=== PATIENT | male | born 1945 | race Caucasian/White ===

== ENCOUNTER 2024-02-21 10:03 | Inpatient (IN) | payer MEDICARE, BC ==
[~2024-02-21] VITALS: Ht 175.3 cm; Wt 79.8 kg
[~2024-02-21 10:03] MED LIST: ALPR0.5T8 PO; IPRA4AER IH; MENT113O TP
[2024-02-21 10:28] LABS: BASOPHILS % (AUTO) 0.5 % (0.0-2.0); EOSINOPHILS # (AUTO) 0.1 K/uL (0.0-0.7); EOSINOPHILS % (AUTO) 1.4 % (0.0-6.0); HEMATOCRIT 26 % (39-51); HEMOGLOBIN 8.5 g/dL (13.5-17.5); LYMPHOCYTES # (AUTO) 0.7 K/uL (0.8-4.8); LYMPHOCYTES % (AUTO) 11.5 % (20.0-44.0); MEAN CORPUSCULAR HEMOGLOBIN 31 PG (26.0-33.0); MEAN CORPUSCULAR HGB CONC 33 g/dl (31.0-36.0); MEAN CORPUSCULAR VOLUME 95 fL (80-96); MONOCYTES # (AUTO) 0.9 K/uL (0.1-1.30); MONOCYTES % (AUTO) 14.3 % (2.0-12.0); NEUTROPHILS # (AUTO) 4.5 K/uL (1.8-8.9); NEUTROPHILS % (AUTO) 72.3 % (43.0-81.0); PLATELET COUNT (AUTO) 144 K/uL (150-450); RED BLOOD CELL COUNT(AUTO) 2.73 MIL/uL (4.5-6.0); RED CELL DISTRIBUTION WIDTH 16.3 % (11.5-15.0); WHITE BLOOD COUNT (AUTO) 6.2 K/uL (4.3-11.0)
[2024-02-21] MEDS: IV NS 0.9% 500 ML BAG IV ONE (10:30)
[2024-02-21 10:37] LABS: INR 1.05 (0.91-1.10); PARTIAL THROMBOPLASTIN TIME 34.4 SEC (24.3-34.3); PROTHROMBIN TIME 11.1 SECS (9.2-11.1)
[2024-02-21 10:45] LABS: CALCIUM, SERUM 8.5 mg/dL (8.5-10.1); CARBON DIOXIDE 25 mmol/L (21-32); CHLORIDE 97 mmol/L (98-107); CREATININE 5.9 mg/dL (0.6-1.3); GLUCOSE 158 mg/dL (74-106); POTASSIUM 3.8 mmol/L (3.5-5.1); SODIUM SERUM 133 mmol/L (136-145); UREA NITROGEN, BLOOD 70 mg/dL (7-18)
[2024-02-21] MEDS ORDERED: DULO30CA52 PO (12:17)
[2024-02-21] MEDS ORDERED: ASCO500T21 PO (12:17)
[2024-02-21] MEDS ORDERED: OXYC1TAB8 PO (12:17)
[2024-02-21] MEDS ORDERED: NIFE-35 PO (12:17)
[2024-02-21] MEDS ORDERED: MAGN400O6 PO (12:17)
[2024-02-21] MEDS ORDERED: LIDO700A30 TP (12:17)
[2024-02-21] MEDS ORDERED: BISA10SU11 RC (12:17)
[2024-02-21] MEDS ORDERED: NUTR1PAC14 PO (12:17)
[2024-02-21] MEDS ORDERED: CYCL5TAB PO (12:17)
[2024-02-21] MEDS ORDERED: CALC667C6 PO (12:17)
[2024-02-21] MEDS ORDERED: ZINC50TA69 PO (12:17)
[2024-02-21] MEDS ORDERED: HYDR-4076 PO (12:17)
[2024-02-21] MEDS ORDERED: TAMS-12 PO (12:17)
[2024-02-21] MEDS ORDERED: VIT1TABL46 PO (12:17)
[2024-02-21] MEDS ORDERED: NA P133E RC (12:17)
[2024-02-21] MEDS ORDERED: METO50TA16 PO (12:17)
[2024-02-21] MEDS ORDERED: PANT40TA49 PO (12:17)
[2024-02-21] MEDS ORDERED: CHOL500062 PO (12:17)
[2024-02-21] MEDS ORDERED: HEPA50008 SQ (12:17)
[2024-02-21] MEDS ORDERED: MAGN400T52 PO (12:17)
[2024-02-21] MEDS ORDERED: DOCU100C36 PO (12:17)
[2024-02-21] MEDS ORDERED: Z GUARD REMEDY 4 OZ OINT TP PRN (12:30)
[2024-02-21] MEDS ORDERED: ONDANSETRON HCL/PF 4 MG/2 ML VIAL IVP PRN (12:30)
[2024-02-21] MEDS ORDERED: hydrALAZINE HCL 25 MG TABLET PO PRN (14:00)
[2024-02-21] MEDS ORDERED: ALPRAZOLAM 0.5 MG TABLET PO PRN (14:00)
[2024-02-21] MEDS ORDERED: CYCLOBENZAPRINE 10 MG TABLET PO PRN (14:00)
[2024-02-21 16:00] VITALS: BP 97/63; TEMP 97.9; O2SAT 96
[2024-02-21] MEDS: METOPROLOL TARTRATE 50 MG TABLET PO SCH (16:56)
[2024-02-21] MEDS: CALCIUM ACETATE 667 MG CAP/TAB PO SCH (18:09)
[2024-02-21 20:00] VITALS: BP 95/56; TEMP 98.5; O2SAT 96
[2024-02-21] MEDS: TAMSULOSIN 0.4 MG CAP.SR.24H PO SCH (21:50)
[2024-02-21] MEDS: NIFEdipine XL (30MG) 30 MG TAB PO SCH (21:52)
[2024-02-21] MEDS: HEPARIN SODIUM, PORCINE 5000 UNITS/1 ML VIAL SQ SCH (21:54)
[2024-02-22] VITALS: BP 118/62; TEMP 98.1; O2SAT 96
[2024-02-22 04:00] VITALS: BP 117/64; TEMP 98.5; O2SAT 94
[2024-02-22 06:47] LABS: BASOPHILS % (AUTO) 0.1 % (0.0-2.0); HEMATOCRIT 25 % (39-51); HEMOGLOBIN 8.5 g/dL (13.5-17.5); LYMPHOCYTES # (AUTO) 0.3 K/uL (0.8-4.8); LYMPHOCYTES % (AUTO) 3.1 % (20.0-44.0); MEAN CORPUSCULAR HEMOGLOBIN 32 PG (26.0-33.0); MEAN CORPUSCULAR HGB CONC 34 g/dl (31.0-36.0); MEAN CORPUSCULAR VOLUME 94 fL (80-96); MONOCYTES # (AUTO) 0.8 K/uL (0.1-1.30); NEUTROPHILS # (AUTO) 8.9 K/uL (1.8-8.9); NEUTROPHILS % (AUTO) 88.8 % (43.0-81.0); PLATELET COUNT (AUTO) 145 K/uL (150-450); RED BLOOD CELL COUNT(AUTO) 2.69 MIL/uL (4.5-6.0)
[2024-02-22 07:15] LABS: CHOLESTEROL 118 mg/dL (<200); HDL CHOLESTEROL 30 mg/dL (40-60); LDL 71 mg/dL (0-99); TRIGLYCERIDES 45 mg/dL (30-150)
[2024-02-22 07:22] LABS: CALCIUM, SERUM 7.9 mg/dL (8.5-10.1); CARBON DIOXIDE 23 mmol/L (21-32); CHLORIDE 99 mmol/L (98-107); GLUCOSE 98 mg/dL (74-106); PHOSPHORUS 4.2 mg/dL (2.5-4.9); POTASSIUM 4.2 mmol/L (3.5-5.1); SODIUM SERUM 138 mmol/L (136-145); UREA NITROGEN, BLOOD 78 mg/dL (7-18)
[2024-02-22] MEDS: PANTOPRAZOLE 40 MG TABLET.DR PO SCH ×2 (07:30→07:56)
[2024-02-22 08:00] VITALS: BP 114/63; TEMP 99.5; O2SAT 92
[2024-02-22] MEDS: DULOXETINE HCL 30 MG CAPSULE.DR PO SCH (08:07)
[2024-02-22] MEDS: LIDOCAINE 5% (PATCH) 1 EA PATCH TP SCH (08:09)
[2024-02-22 12:00] VITALS: BP 102/60; TEMP 98.6; O2SAT 94
[2024-02-22 16:00] VITALS: BP 123/79; TEMP 98.1; O2SAT 94
[2024-02-22] MEDS: BISACODYL SUPP (10 MG) 10 MG/SUPP.RECT SUPP.RECT RC ONE (18:32)
[2024-02-22] MEDS: ACETAMINOPHEN 325 MG TABLET PO PRN (18:44)
[2024-02-22 20:00] VITALS: BP 103/65; TEMP 97.5; O2SAT 95
[2024-02-22] MEDS: SENNOSIDES 8.6 MG TABLET PO SCH (21:52)
[2024-02-22] MEDS: oxyCODONE/APAP (5/325 MG) 1 UDTAB TABLET PO PRN (23:41)
[2024-02-23] VITALS: BP 101/58; TEMP 97.5; O2SAT 95
[2024-02-23] MEDS: NA PHOS,M-B/NA PHOS,DI-BA 1 EA ENEMA RC PRN (00:23)
[2024-02-23 04:00] VITALS: BP 92/63; TEMP 97.6; O2SAT 95
[2024-02-23 08:00] VITALS: BP 113/56; TEMP 98.2; O2SAT 95
[2024-02-23] MEDS: DOCUSATE SODIUM 100 MG CAPSULE PO SCH (08:19)
[2024-02-23 08:30] LABS: BASOPHILS % (AUTO) 0.1 % (0.0-2.0); EOSINOPHILS % (AUTO) 0.2 % (0.0-6.0); HEMATOCRIT 28 % (39-51); HEMOGLOBIN 9.1 g/dL (13.5-17.5); LYMPHOCYTES # (AUTO) 0.5 K/uL (0.8-4.8); LYMPHOCYTES % (AUTO) 3.3 % (20.0-44.0); MEAN CORPUSCULAR HEMOGLOBIN 31 PG (26.0-33.0); MEAN CORPUSCULAR HGB CONC 32 g/dl (31.0-36.0); MEAN CORPUSCULAR VOLUME 96 fL (80-96); MONOCYTES # (AUTO) 0.9 K/uL (0.1-1.30); MONOCYTES % (AUTO) 6.4 % (2.0-12.0); NEUTROPHILS # (AUTO) 12.2 K/uL (1.8-8.9); PLATELET COUNT (AUTO) 145 K/uL (150-450); RED BLOOD CELL COUNT(AUTO) 2.95 MIL/uL (4.5-6.0); RED CELL DISTRIBUTION WIDTH 16.1 % (11.5-15.0); RETICULOCYTE COUNT 0.9 % (0.6-2.5); WHITE BLOOD COUNT (AUTO) 13.6 K/uL (4.3-11.0)
[2024-02-23] MEDS ORDERED: NEPRO VAN 237 ML CAN PO PRN (08:30)
[2024-02-23 08:35] LABS: IRON, SERUM 13 ug/dl (50-175); TOTAL IRON BINDING CAPACITY 112 ug/dl (250-450)
[2024-02-23 08:55] LABS: ALANINE AMINOTRANSFERASE 9 U/L (12-78); ALBUMIN 1.9 g/dL (3.4-5.0); ALKALINE PHOSPHATASE 89 U/L (46-116); ASPARTATE AMINOTRANSFERASE 10 U/L (15-37); BILIRUBIN,TOTAL 0.6 mg/dL (0.2-1.0); CALCIUM, SERUM 8.3 mg/dL (8.5-10.1); CARBON DIOXIDE 27 mmol/L (21-32); CHLORIDE 99 mmol/L (98-107); CREATININE 4.6 mg/dL (0.6-1.3); GLUCOSE 114 mg/dL (74-106); MAGNESIUM 2.2 mg/dL (1.8-2.4); PHOSPHORUS 3.7 mg/dL (2.5-4.9); POTASSIUM 3.7 mmol/L (3.5-5.1); SODIUM SERUM 136 mmol/L (136-145); UREA NITROGEN, BLOOD 53 mg/dL (7-18)
[2024-02-23 09:04] LABS: CREATINE KINASE, TOTAL 42 U/L (39-308); FERRITIN 1486 ng/mL (8-388)
[2024-02-23] MEDS: DAKINS QUARTER STRENGTH (0.125%) 480 ML BOTTLE TOP SCH (09:29)
[2024-02-23 12:00] VITALS: BP 95/70; TEMP 98.5; O2SAT 95
[2024-02-23 16:00] VITALS: BP 90/55; TEMP 98.1; O2SAT 96
[2024-02-23 20:00] VITALS: BP 112/68; TEMP 98; O2SAT 95
[2024-02-23] MEDS: ZOLPIDEM TARTRATE 5 MG TABLET PO PRN (21:49)
[2024-02-24] VITALS (7 sets, daily range): BP systolic 90–125; BP diastolic 51–74; TEMP 98–98.6; O2SAT 94–98
[2024-02-24 02:10] LABS: HEPATITIS B SURFACE AB Non Reactive (.)
[2024-02-24 08:07] LABS: PTH, INTACT 92 pg/mL (15-65)
[2024-02-24 16:06] LABS: *SPE A/G RATIO 0.6 (0.7-1.7); *SPE ALBUMIN 2.4 g/dL (2.9-4.4); *SPE ALPHA-1-GLOBULIN 0.5 g/dL (0.0-0.4); *SPE BETA GLOBULIN 0.9 g/dL (0.7-1.3); *SPE M-SPIKE Not Observed g/dL (Not Observed); *SPE PROTEIN TOTAL 6.4 g/dL (6.0-8.5); *SPEGAMMA GLOBULIN 1.7 g/dL (0.4-1.8)
[2024-02-25 04:00] VITALS: BP 98/54; TEMP 99.1; O2SAT 100
[2024-02-25 08:00] VITALS: BP 100/90; TEMP 99; O2SAT 98
[2024-02-25 08:54] VITALS: BP 100/90
== END 2024-02-25 15:11 | DRG 640 ==
LOC: ER 10:03 → EDBD 10:03 → TELE1 11:15 → MEDSG1 02-24 11:37
PROC: 5A1D70Z Performance of Urinary Filtration, Intermittent, Less than 6 Hours Per Day (ICD-10-PCS; principal; 2024-02-22)
PROC: 05HC33Z Insertion of Infusion Device into Left Basilic Vein, Percutaneous Approach (ICD-10-PCS; 2024-02-22)
PROC: B54NZZA Ultrasonography of Left Upper Extremity Veins, Guidance (ICD-10-PCS; 2024-02-22)
DX: E87.79 Other fluid overload (principal); N18.6 End stage renal disease; I12.0 Hypertensive chronic kidney disease with stage 5 chronic kidney disease or end stage renal disease; G93.49 Other encephalopathy; K21.9 Gastro-esophageal reflux disease without esophagitis; N40.0 Benign prostatic hyperplasia without lower urinary tract symptoms; Z91.158 Patient's noncompliance with renal dialysis for other reason; Z99.2 Dependence on renal dialysis; D63.1 Anemia in chronic kidney disease; F32.A Depression, unspecified; F41.9 Anxiety disorder, unspecified; G62.9 Polyneuropathy, unspecified; J44.9 Chronic obstructive pulmonary disease, unspecified; K59.00 Constipation, unspecified; M24.562 Contracture, left knee; N25.0 Renal osteodystrophy; S81.812A Laceration without foreign body, left lower leg, initial encounter; S81.811A Laceration without foreign body, right lower leg, initial encounter; X58.XXXA Exposure to other specified factors, initial encounter; Y93.9 Activity, unspecified; Y92.129 Unspecified place in nursing home as the place of occurrence of the external cause; Q81.9 Epidermolysis bullosa, unspecified
CPT/HCPCS: 36415; 71045-TC; 80048-TC; 80053-TC; 80061-TC; 82550-TC; 82607-TC; 82728-TC; 82962-TC; 83540-TC; 83735-TC; 83970; 84100-TC; 84155; 84165; 84443-TC; 85025-TC; 85045-TC; 85730-TC; 86706; 87340; 90935-TC; 92526; 92611-TC; 94799-TC; 97110-TC; 97530-TC; A4223; G0378; J1644; J7030; J7060